=== PATIENT | female | born 1930 ===

== ENCOUNTER 2017-05-04 08:08 | Inpatient (IN) | payer MEDICARE, MEDICAID ==
--- NOTE | 2017-05-04 08:26 | C.PDOC ---
History Of Present Illness 86 y/o female brought to ED by AMS transferred from [facility] for evaluation after being found drooling at 6am today. Dr. Bharat CASTELLANOS sent patient because at baseline she is AAOX3 and verbal but today patient is non verbal and moaning which prompted transfer to ed. At baseline patient has Left side Hemiparesis and patient at ED presents documentation of being DNR/DNH/DNI. HPI limited due to patient's condition. Time Seen by Provider: 05/04/17 08:11 Chief Complaint (Nursing): Weakness/Neurological Deficit History Per: EMS History/Exam Limitations: clinical condition Onset/Duration Of Symptoms: Hrs Current Symptoms Are (Timing): Still Present Past Medical History Reviewed: Historical Data, Nursing Documentation, Vital Signs Vital Signs: Last Vital Signs Temp 99.2 F 05/04/17 09:20 Pulse 78 05/04/17 10:21 Resp 18 05/04/17 10:21 BP 155/42 H 05/04/17 10:21 Pulse Ox 100 05/04/17 10:25 - Medical History PMH: Anxiety, Atrial Fibrillation, Bipolar Disorder, CHF, Dementia, Depression, Diabetes, HTN, Seizures Family History: States: Unknown Family Hx - Social History Hx Tobacco Use: No Hx Alcohol Use: No Hx Substance Use: No - Immunization History Hx Tetanus Toxoid Vaccination: No Hx Influenza Vaccination: Yes Hx Pneumococcal Vaccination: Yes Review Of Systems Review Of Systems: ROS cannot be obtained secondary to pt's inabilty to answer questions. (Patient is non verbal and disoriented) Physical Exam - Physical Exam Appears: Chronically Ill, Other (Cachetic ) Skin: Warm, Dry, No Rash Head: Atraumatic, Normacephalic Eye(s): bilateral: Normal Inspection, PERRL, EOMI Oral Mucosa: Moist Neck: Supple Chest: Symmetrical Cardiovascular: Rhythm Irregular Respiratory: Normal Breath Sounds, No Rales, No Rhonchi, No Wheezing Gastrointestinal/Abdominal: Soft, No Tenderness, No Distention, No Guarding, No Rebound Extremity: No Normal ROM (no movement to L side. moving R side spontaneously), Other (L ankle: necrotic ulcer to lateral side. Stage 1 to medial side) Neurological/Psych: No Normal Speech, No Response To Commands (Patient is alert but non verbal) ED Course And Treatment - Laboratory Results Result Diagrams: 05/04/17 09:09 05/04/17 09:09 O2 Sat by Pulse Oximetry: 100 (RA) Pulse Ox Interpretation: Normal Medical Decision Making Medical Decision Making: Spoke to PMD Dr. Nicholson who reports that patient is normally AAOx3 and conversant at baseline. He is concerned about this AMS but reports that patient is not TPA candidate due to last known well being sometime last night before bed , ?9-10pm. Will evaluate for infection and cva 9:31AM EKG shows atrial fibrillation at 71bpm with LAD. Cxray negative 10:18AM CT head shows "Examination limited by motion. Extensive right MCA territory encephalomalacia." Cxray shows "Biapical pleural thickening with upper lobe granulomatous changes. Diffuse increased interstitial lung markings. Right hilar prominence. Patchy increased markings at the left lung base." 10:20AM Patient has elevated WBC with 87% neutrophils. Lactate WNL. CMP grossly normal. UA shows leukocytes and wbcs. Ucx, Blood cx and wound cultures sent. Will start antibiotics (Zosyn per PMD Dr. Nicholson) and admit for uti/altered mental status. Dr. Nicholson requesting med/sx Disposition - Disposition Disposition: HOSPITALIZED Disposition Time: 10:21 Condition: FAIR - Clinical Impression Clinical Impression: UTI (urinary tract infection), Altered mental status - Scribe Statement The provider has reviewed the documentation as recorded by the Scribadrienne Mario All medical record entries made by the Scribe were at my direction and personally dictated by me. I have reviewed the chart and agree that the record accurately reflects my personal performance of the history, physical exam, medical decision making, and the department course for this patient. I have also personally directed, reviewed, and agree with the discharge instructions and disposition.
[2017-05-04 09:17] LABS: BASO % 0.3 % (0.0-2.0); EOS # 0.1 K/uL (0.0-0.7); EOS % 0.6 % (0.0-4.0); HEMATOCRIT 36.8 % (34.0-47.0); LYMPH # 0.8 K/uL (1.0-4.3); LYMPH % 5.9 % (20.0-40.0); MEAN CELL VOLUME 90.8 fL (81.0-99.0); MEAN CORPUSCULAR HEMOGLOBIN 29.7 pg (27.0-31.0); MEAN CORPUSCULAR HGB CONC 32.7 g/dL (33.0-37.0); MEAN PLATELET VOLUME 8.2 fL (7.2-11.7); MONO # 0.7 K/uL (0.0-0.8); MONO % 5.7 % (0.0-10.0); PLATELET COUNT 192 K/uL (130-400); RED CELL DISTRIBUTION WIDTH 15.7 % (11.5-14.5); WHITE BLOOD COUNT 12.8 K/uL (4.8-10.8)
[2017-05-04 09:24] LABS: VENOUS BLOOD GAS BASE EXCESS 1.9 mmol/L (0.0-2.0); VENOUS BLOOD GAS PCO2 55 mmHg (40-60); VENOUS BLOOD PH 7.33 (7.32-7.43)
[2017-05-04 09:24] LABS: INR 1.3
[2017-05-04 09:28] LABS: ALB/GLOB RATIO 0.8 (1.0-2.1); BILIRUBIN,TOTAL 0.6 mg/dL (0.2-1.3); CALCIUM 8.4 mg/dl (8.6-10.4); MAGNESIUM 1.8 mg/dL (1.6-2.3); PHOSPHOROUS 3.9 mg/dL (2.5-4.5); TOTAL PROTEIN 7.2 g/dL (6.3-8.3)
[2017-05-04 09:41] LABS: TROPONIN I 0.018 ng/mL (0.00-0.120)
[2017-05-04 09:46] LABS: NEUTROPHIL 88 % (50-75); TOTAL CELLS COUNTED 100
[2017-05-04 10:09] LABS: RBC URINE 4 /hpf (0-3); URINE BACTERIA RARE (<OCC); URINE BILIRUBIN NEGATIVE (NEGATIVE); URINE BLOOD NEGATIVE (NEGATIVE); URINE COLOR Amber (YELLOW); URINE GLUCOSE (UA) NORMAL (Normal); URINE KETONE NEGATIVE (NEGATIVE); URINE LEUKOCYTE ESTERASE 3+ Leu/uL (Negative); URINE PROTEIN NEGATIVE (NEGATIVE); URINE UROBILINOGEN NORMAL mg/dL (0.2-1.0); WBC CLUMPS FEW /hpf; WBC URINE 61 /hpf (0-5)
--- NOTE | 2017-05-04 10:17 | CT ---
PROCEDURE: CT HEAD WITHOUT CONTRAST. HISTORY: head injury COMPARISON: Noncontrast head CT performed 10/26/11 TECHNIQUE: Axial computed tomography images were obtained through the head/brain without intravenous contrast. Radiation dose: Total exam DLP = 955.25 mGy-cm. This CT exam was performed using one or more of the following dose reduction techniques: Automated exposure control, adjustment of the mA and/or kV according to patient size, and/or use of iterative reconstruction technique. FINDINGS: Examination limited by motion. HEMORRHAGE: No intracranial hemorrhage. BRAIN: Diffuse atrophy with prominence of the ventricles and sulci noted. No mass effect or edema. Intracranial atherosclerotic calcifications. Extensive right MCA territory encephalomalacia. Please note that MRI with diffusion imaging is more sensitive in the detection of acute ischemic event. VENTRICLES: No hydrocephalus. CALVARIUM: Unremarkable. PARANASAL SINUSES: Unremarkable as visualized. No significant inflammatory changes. MASTOID AIR CELLS: Unremarkable as visualized. No inflammatory changes. OTHER FINDINGS: None. IMPRESSION: Examination limited by motion. Extensive right MCA territory encephalomalacia.
[2017-05-04] MEDS ORDERED: Ciprofloxacin 400mg/200ml D5W 400 MG/200 ML BAG IVPB STA (10:19)
[2017-05-04] MEDS ORDERED: Ciprofloxacin 400mg/200ml D5W 400 MG/200 ML BAG IVPB ONE (10:25)
[2017-05-04] MEDS ORDERED: Piperacill/Tazo 3.375gm in Dex 3.375 GM/50 ML BAG IVPB STA (10:30)
--- NOTE | 2017-05-04 10:36 | RAD ---
HISTORY: Altered mental status COMPARISON: No prior. FINDINGS: LUNGS: Biapical pleural thickening with upper lobe granulomatous changes. Diffuse increased interstitial lung markings. Right hilar prominence. Patchy increased markings at the left lung base. PLEURA: No significant pleural effusion identified, no pneumothorax apparent. CARDIOVASCULAR: Cardiomegaly. Calcification at the aortic knob. OSSEOUS STRUCTURES: Degenerative changes in the spine and shoulders. Small bone island in the left proximal humerus. VISUALIZED UPPER ABDOMEN: Normal. OTHER FINDINGS: None. IMPRESSION: Biapical pleural thickening with upper lobe granulomatous changes. Diffuse increased interstitial lung markings. Right hilar prominence. Patchy increased markings at the left lung base.
[2017-05-04] MEDS ORDERED: Piperacillin/Tazobact 3.375 gm 100 ML IVPB ONE (10:39)
[2017-05-04] MEDS ORDERED: Dextrose 50% SYRINGE Inj (50 ml) IV PRN (18:55)
[2017-05-04] MEDS ORDERED: Piperacill/Tazo 3.375gm in Dex 3.375 GM/50 ML BAG IVPB SCH (19:15)
[2017-05-04] MEDS: Dextrose 5%/0.9% NS 1,000 ML IV SCH (20:36)
[2017-05-04] MEDS: Piperacill/Tazo 3.375gm in Dex 3.375 GM/50 ML BAG IVPB SCH (20:37)
[2017-05-04] MEDS: (Novolin R) Insulin Human Regular 100 units/ml vial SC SCH (21:28)
[2017-05-05] MEDS: Piperacill/Tazo 3.375gm in Dex 3.375 GM/50 ML BAG IVPB SCH ×4 (02:25→21:27)
--- NOTE | 2017-05-05 03:58 | PN ---
DATE: SUBJECTIVE: This is an 86-year-old female with history of multiple medical problems, who is a [facility] resident for many years. The patient had an episode of hypoglycemia. The patient was noticed to have decreased oral intake and due to continuous change of her mental status with inability to go back to the baseline in spite of elevating blood sugar above 100, the patient was transferred to [facility] by ambulance. The patient at the time of the examination was given Ativan in the emergency room due to agitation and she is not responsive to verbal stimuli. REVIEW OF SYSTEMS: Not able to obtain. ALLERGIES: NO KNOWN ALLERGIES. HOME MEDICATIONS: Humalog, enalapril 2.5 mg daily, Tradjenta 5 mg daily, omeprazole 20 mg daily, metoprolol 50 mg daily, metformin 500 mg twice a day, Lamictal 25 mg twice a day, lactulose 10 g at bedtime, Keppra 7.5 mL p.o. daily, glipizide 10 mg daily, Exelon patch 4.6 mg daily, Eliquis 2.5 mg daily, Aricept 10 mg daily, diltiazem 240 mg daily, digoxin 0.125 mg daily, Crestor 10 mg daily, Colace 100 mg twice a day. PAST MEDICAL HISTORY: CVA with right-sided hemiparesis, chronic atrial fibrillation with controlled ventricular rate, seizure disorder, hypertension, type 2 diabetes mellitus, hypercholesterolemia. SOCIAL HISTORY: The patient is a [facility] resident. No history of smoking or EtOH or substance abuse. FAMILY HISTORY: Noncontributory. PHYSICAL EXAMINATION GENERAL: The patient is in bed, comfortable at the time of this examination, sedated by Ativan that she was given and no cardiopulmonary distress. VITAL SIGNS: Blood pressure 155/66, temperature 98.2, respiratory rate 20, pulse 83. HEENT: Pupils equal, reactive to light. Normal appearing mucosa. No conjunctivae. NECK: Supple. No JVD. No carotid bruits. No lymph node. No thyromegaly. CHEST: Lungs bilateral symmetrical expansion. Good air exchange. No rales. No rhonchi. CARDIOPULMONARY: PMI not localized S1 and S2. No additional sounds. ABDOMEN: Normoactive bowel sounds. No tenderness. No organomegaly. No masses. EXTREMITIES: No cyanosis, no clubbing, no edema. CENTRAL NERVOUS SYSTEM: The patient is alert, awake and oriented and the patient is sedated. Currently, was given Ativan and she has right-sided hemiparesis. ASSESSMENT: Acute change of mental status. DIFFERENTIAL DIAGNOSES: Include: 1. Sepsis. 2. Seizure disorder, seizure was postictal state. 3. Type 2 diabetes mellitus. 4. Hypertension. 5. H/O CVA with right-sided hemiparesis. 6. Hypercholesterolemia. PLAN: The patient had form signed by a lady, her name is Reanna, who is the patient's friend and does not have any power of transactional attorney or legal representation. I spoke to the friend, Reanna, who was at the bedside. She speaks only Kitt[place] and we spoke to her through an automation machine builder .Reanna is not aware that she signed any paper that relates to the DNR, DNI .2 ER nurses witnessed this conversation. At this point , we will make the patient full code, waiting to hear from her son that the friend called. We will admit the patient to telemetry and do neuro check Q 4 hours. We will do 1:1 in case of the patient's agitation and we will not give any sedation at this point. Alin Nicholson MD [facility]
[2017-05-05] MEDS: Dextrose 5%/0.9% NS 1,000 ML IV SCH ×3 (07:30→21:28)
[2017-05-05] MEDS: (Novolin R) Insulin Human Regular 100 units/ml vial SC SCH ×4 (07:30→21:33)
[2017-05-06] MEDS: Piperacill/Tazo 3.375gm in Dex 3.375 GM/50 ML BAG IVPB SCH ×4 (03:05→20:37)
[2017-05-06] MEDS: (Novolin R) Insulin Human Regular 100 units/ml vial SC SCH ×4 (08:00→21:29)
[2017-05-06] MEDS: Dextrose 5%/0.9% NS 1,000 ML IV SCH ×3 (09:00→20:40)
[2017-05-06 14:22] LABS: MAGNESIUM 1.5 mg/dL (1.6-2.3); PHOSPHOROUS 3.6 mg/dL (2.5-4.5)
[2017-05-06] MEDS ORDERED: Enoxaparin 40 mg Syringe SC SCH (15:15)
[2017-05-06] MEDS ORDERED: Enalaprilat 2.5 MG/2 ML IV SCH (15:30)
--- NOTE | 2017-05-06 20:35 | PN ---
DATE: 05/06/2017 SUBJECTIVE: There is no change in mental status. PHYSICAL EXAMINATION: VITAL SIGNS: Blood pressure is increased, 191/79, temperature 97.3, respiratory rate 20, and pulse 109. HEENT: Normal appearing mucosa of the conjunctivae. NECK: No JVD. No carotid bruit. No lymph node. No thyromegaly. CHEST AND LUNGS: Bilateral symmetrical expansion. Good air exchange. No rales, no rhonchi. CARDIOVASCULAR: PMI not localized. S1 and S2. Irregularly irregular. ABDOMEN: Normoactive bowel sounds. Nontender. No organomegaly. No masses. EXTREMITIES: No cyanosis, no clubbing, no edema. CENTRAL NERVOUS SYSTEM: The patient is awake, but she is disoriented, and she is not responding to any questions appropriately and moves in the bed without purpose. ASSESSMENT: Acute change in mental status. DIFFERENTIAL DIAGNOSES: Include; 1. A seizure with postictal state. 2. Hypertension. 3. Type 2 diabetes mellitus. 4. Atrial fibrillation with controlled ventricular rate. PLAN: We will resume the patient's IV. Repeat CAT scan. Neurology and psychiatric consult. Alin Nicholson MD
--- NOTE | 2017-05-06 20:43 | PN ---
DATE: 05/05/2017 SUBJECTIVE: She is still continuing to . The patient was not responding to any question appropriately. PHYSICAL EXAMINATION: VITAL SIGNS: Blood pressure was 108/49, temperature 98.5, respiratory rate 20 and pulse 90. HEENT: Pupils equal, reactive to light. Normal appearing mucosa of the conjunctivae, oropharyngeal and nasal green mucosa. NECK: Supple. No JVD. No carotid bruit. No lymph node. No thyromegaly. CHEST AND LUNGS: Bilateral symmetrical expansion. Good air exchange. No rales, no rhonchi. CARDIOVASCULAR: PMI not localized. S1 and S2, regularly irregular. No additional sounds. ABDOMEN: Normoactive bowel sounds. No tenderness. No organomegaly. No masses. EXTREMITIES: No cyanosis, no clubbing, no edema. BUFFING MACHINE TENDER: The patient is awake but she is disoriented, confused and she has old right-sided hemiplegia. ASSESSMENT: Acute change of mental status. DIFFERENTIAL DIAGNOSES: Includes: 1. Sepsis. 2. Cerebrovascular accident. 3. Seizure with postictal state. 4. Hypertension. 5. Type 2 diabetes mellitus. 6. Cerebrovascular accident with right-sided hemiparesis. PLAN: Continue current medications and well repeat a CAT scan of the head and continue IV antibiotics. Alin Nicholson MD
[2017-05-06] MEDS: Metoprolol 1 mg/ml Inj IVP SCH (22:16)
--- NOTE | 2017-05-06 22:24 | CT ---
EXAM: CT Head Without Intravenous Contrast CLINICAL HISTORY: 86 years old, female; Signs and symptoms; Altered mental status/memory loss; Confusion or disorientation; Additional info: CVA TECHNIQUE: Axial computed tomography images of the head/brain without intravenous contrast. All CT scans at this facility use one or more dose reduction techniques, viz.: automated exposure control; ma/kV adjustment per patient size (including targeted exams where dose is matched to indication; i.e. head); or iterative reconstruction technique. Coronal and sagittal reformatted images were created and reviewed. EXAM DATE/TIME: 05/06/2017 3:07 PM COMPARISON: CT - HEAD W/O CONTRAST 05/04/2017 9:19:37 AM FINDINGS: Patient motion is present limiting exam. No intracranial hemorrhage. There is a small area of low attenuation in the left superior caudate consistent with old lacunar infarct. Again seen is extensive encephalomalacia from prior right MCA infarct with ex vacuo dilatation of the right lateral ventricle. There is a wedge-shaped area of low attenuation in the left parietal temporal lobes consistent with acute/subacute infarct. There is slight mass effect upon the occipital horn of the left lateral ventricle. No midline shift. The sinuses and mastoid air cells are clear. IMPRESSION: Acute/subacute infarct left parietal temporal region. Chronic right MCA infarct. Chronic left caudate lacunar infarct.
[2017-05-07] MEDS: Piperacill/Tazo 3.375gm in Dex 3.375 GM/50 ML BAG IVPB SCH ×4 (03:16→21:40)
--- NOTE | 2017-05-07 04:16 | PCM.RRTMUL ---
<Mayco Andrews - Last Filed: 05/07/17 04:14> LANGUAGE TRANSLATOR Nurses Assessment - Situation LANGUAGE TRANSLATOR Reason for Call: Possible Stroke LANGUAGE TRANSLATOR Called By: RN New IV Insertion Tolerance:: Good - Vital Signs Blood Pressure:: 163/88 Pulse Rate:: 109 Respiratory Rate:: 20 Temperature:: 98.2 F - Recommendations 5) LANGUAGE TRANSLATOR Level of Care Recommendations: Transfer to Telemetry 6) Notifications: Attending Physician (Neurologist was notified) I.Reason for LANGUAGE TRANSLATOR - A) Acute Change in Patient: Subjective: Code stroke was called after repeat CT image showed possible acute/subacute infarct of the left parietal/temporal region of the brain. - B) Neurological Status (Select all that apply): Disoriented (pt has baseline dementia, previous strokes and was recently given ativan for CT scan) - Constitutional Appears: Confused, Chronically Ill - Eyes Additional Comments: Dilated pupils, only would open left eye. - Respiratory Exam Respiratory Exam: Clear to Ausculation Bilateral, NORMAL BREATHING PATTERN. absent: Accessory Muscle Use, Respiratory Distress - Cardiovascular Exam Cardiovascular Exam: +S1, +S2 - GI/Abdominal Exam GI & Abdominal Exam: Soft. absent: Distended, Guarding, Rigid - Neurological Exam Neurological Exam: Altered Additional exam: Patient has baseline dementia, hx of previous strokes with deficits and was recently given ativan for CT scan - Extremities Exam Additional comments: Patient spontaneously moved right arm up to cover her face during the examination. would pull away from painful stimuli on right side UE and LE, decreased movement away from painful stimuli on left side UE but did not respond at all to painful stim. on left LE. Plan - B. Assessment of Findings&Treatment Plan Code stroke was called after repeat CT image showed possible acute/subacute infarct of the left parietal/temporal region of the brain. The CT was ordered as a repeat as to follow up her altered mental status on admission. Patient is unable to answer questions due to altered mental status at the time of the examination. She was recently given Ativan prior to getting the CT. Patient also has a history of baseline dementia, chronic afib and repeat strokes while on anticoagulation. Patient is not a candidate for tPA. Dr. Jaimes was called and notified of event. <Gavin Marin - Last Filed: 05/07/17 07:23> Attending/Attestation - Attestation I have personally seen and examined this patient.: Yes I have fully participated in the care of the patient.: Yes I have reviewed all pertinent clinical information, including history, physical exam and plan: Yes Notes (Text): Code stroke was called after repeat CT image showed possible acute/subacute infarct of the left parietal/temporal region of the brain. The CT was ordered as a repeat as to follow up her altered mental status on admission. Patient is unable to answer questions due to altered mental status at the time of the examination. She was recently given Ativan prior to getting the CT. Patient also has a history of baseline dementia, chronic afib and repeat strokes while on anticoagulation. Patient is not a candidate for tPA. Dr. Jaimes was called and notified of event.
--- NOTE | 2017-05-07 05:57 | CON ---
DATE: 05/06/2017 CHIEF COMPLAINT AND REASON FOR CONSULTATION: The patient was referred by Dr. Nicholson for evaluation of this patient for change in mental status. The patient has history as mentioned and is on multiple psych meds. HISTORY OF PRESENT ILLNESS: The patient is an 86-year-old female of descent with multiple medical problems. The patient has been a resident of [facility] for many years. The patient was admitted here for change in mental status. The patient had episodes of hypoglycemia, but the patient was noted to be not getting well and her mental status seems to be deteriorating. The patient was also diagnosed to have urinary tract infection on admission and was admitted. The patient was referred for goal management as the patient seems to be having change in mental status. The patient when seen today is alert, but seems to be confused and was trying to raise her right hand. The patient was seen in a four-bedded room. She also has bouts of agitation. In the emergency room, she was given Ativan for agitation; the patient at one point was given 2 mg, but got sedated. Today, she is alert, but still with periods of confusion. The patient also was nonverbal. She is restless and trying to get out of bed and needs to be monitored. PAST PSYCHIATRIC HISTORY: History of dementia, most probably vascular type. The patient had a CAT scan of the head done in the emergency room that showed the following findings: The patient had no intracranial hemorrhage; however, it showed extensive right MCA territory encephalomalacia and previous stroke. As stated, the patient has a history of dementia, most probably vascular type. MEDICAL HISTORY: History of seizures, history of atrial fibrillation, CHF, diabetes, and hypertension. ALLERGIES: THE PATIENT HAS NO KNOWN ALLERGIES. DRUG/ALCOHOL HISTORY: Denies any. PSYCHOSOCIAL HISTORY: The patient is a long term patient for many years at [facility]. Psychosocial history cannot be taken much as the patient is confused and a very poor historian. MEDICATIONS: The patient is on Voltaren, Vesicare, Vasotec, Tradjenta, metoprolol, Lamictal 25 mg b.i.d., Keppra 7.5 mL daily, glipizide, and Eliquis. Note that these are the medications that the patient was taking at the long term. The patient also was taking Aricept 10 mg daily at bedtime and also Exelon patch 4.6 mg patch daily. Her current medications in the hospital just include heparin, Keppra 750 mg q.12 hours as well as Lopressor, Lovenox, Novolin, Vasotec, and Zosyn. REVIEW OF SYSTEMS: Cannot be fully assessed due to mental status. PHYSICAL EXAMINATION VITAL SIGNS: Temperature is 97.3, pulse 144, blood pressure is 162/98, respirations 22, and oxygen saturation 95%. GENERAL: The patient is alert but nonverbal, sitting in her room, still confused. The patient's mental status seems to be waxing and waning. She seems to not be in acute respiratory distress, moving her right hand. The patient has left-sided weakness from her previous stroke. The patient is mostly nonverbal. MENTAL STATUS EXAMINATION: Elderly female, chronically ill, confused but alert. The patient is mostly nonverbal. Affect is restricted with dysphoria. Thought process cannot be assessed. Thought content, no overt psychosis or suicidal ideation. The patient is very fidgety and trying to get out of bed. Attention and memory seem to be impaired. Insight and judgement impaired. Impulse control is guarded at this time. LABORATORY DATA: The patient's WBC is 12.8. UA has the presence of +3-4 leukocyte esterase, urine wbc's 61, urine rbc's 4, presence of urine wbc clumps few. The patient's color of the urine is darleen. IMPRESSION: Metabolic encephalopathy secondary to sepsis from urinary tract infection, superimposed on dementia, most probably vascular type. PLAN AND RECOMMENDATIONS: The patient was seen, meds reviewed. Continue antibiotics as ordered. The patient is being treated with Zosyn for infection. Psych-reed, I will keep her in the safety observation room for monitoring. I do suggest holding off the Aricept and the Exelon patch for now; however, for agitation, we will try to give her Ativan 1 mg IV q.6 p.r.n. for agitation. The patient is also referred to be seen by Dr. Jaimes for neuro eval. I did review some of her records from the long term. The patient was taking some other psych medications in the past including Risperdal, but the patient does not need it for now. For now, we will just keep her on Ativan p.r.n. to control agitation. Ted Lee MD [facility] # [id number] MICAH
[2017-05-07] MEDS: (Novolin R) Insulin Human Regular 100 units/ml vial SC SCH ×4 (08:40→21:55)
[2017-05-07] MEDS: Dextrose 5%/0.9% NS 1,000 ML IV SCH (09:30)
[2017-05-07] MEDS: Metoprolol 1 mg/ml Inj IVP SCH ×2 (10:00→21:31)
--- NOTE | 2017-05-07 10:33 | PCM.RRTMUL ---
APPEALS NURSE Nurses Assessment - Situation APPEALS NURSE Responder Arrival Time:: 10:22 (APPEALS NURSE called at 10:25, patient was actively seizing. Hx of CVA. Code stroke called this morning for AMS. Head CT showed subacute infarct parietal/temporal lobe. TPA not administered. Patient hx of seizures due to recurrent CVAs. Spoke with Neurologist, who increased the keppra. He will see the patient today. ) Location:: Room Number:: 656B APPEALS NURSE Reason for Call: Possible Stroke, Looks Sicker APPEALS NURSE Called By: RN - IV IV Inserted during APPEALS NURSE?: No New IV Insertion Tolerance:: Good - Respiratory Oxygen Delivery Method:: Nasal Cannula Received Nebulizer Treatments:: No Was the Patient Ventilated with Bag/Mask 100% O2?: No Secretions Suctioned?: No Was the Patient Intubated?: No Was the Patient Placed on a Ventilator?: No - Medication Medications Administered During APPEALS NURSE :: Ativan 1mg IVP x2. TOTAL 2 mg IVP given due to active seizure activity. - Diagnostic Test Ordered Chest X-Ray:: Yes (Patient sounded fluid overloaded. Was on fluids, I ordered them to stop.) - Stat Labs Ordered APPEALS NURSE Stat Labs Ordered:: CBC APPEALS NURSE Other Labs Ordered:: CMP, MAG, PHOS CPR started during APPEALS NURSE?: No - Vital Signs Blood Pressure:: 160/75 Pulse Rate:: 97 Respiratory Rate:: 20 Temperature:: 99.3 F - Time APPEALS NURSE Ended Time APPEALS NURSE Ended:: 10:35 - Vital Signs at end of APPEALS NURSE Blood Pressure:: 174/75 - Recommendations 5) APPEALS NURSE Level of Care Recommendations: Remain in current setting 6) Notifications: Attending Physician (Neurologist was notified, resident spoke with Dr. Jaimes orderd Keppra be increased to 1000mg IVP Q12. Call was placed to Primary doctor, no call back. ), Consultations I.Reason for APPEALS NURSE - A) Acute Change in Patient: (Select all that apply): Acute change in mental status (seizure ) - B) Neurological Status (Select all that apply): Lethargic - C) Respiratory Oxygen Delivery Method: Nasal Cannula @L/min - Constitutional Appears: Confused, Chronically Ill - Head Head Exam: NORMAL INSPECTION, NORMOCEPHALIC - Eyes Eye Exam: EOMI, Normal appearance, PERRL - Respiratory Exam Respiratory Exam: Rales, NORMAL BREATHING PATTERN - Cardiovascular Exam Cardiovascular Exam: REGULAR RHYTHM - GI/Abdominal Exam GI & Abdominal Exam: Soft, Normal Bowel Sounds. absent: Distended, Tenderness - Neurological Exam Neurological Exam: Awake - Extremities Exam Extremities Exam: Normal Inspection. absent: Pedal Edema, Tenderness
[2017-05-07 11:18] LABS: BASO % 0.4 % (0.0-2.0); EOS % 0.1 % (0.0-4.0); HEMATOCRIT 38.8 % (34.0-47.0); LYMPH # 0.9 K/uL (1.0-4.3); LYMPH % 8.9 % (20.0-40.0); MEAN CELL VOLUME 90.5 fL (81.0-99.0); MEAN CORPUSCULAR HEMOGLOBIN 29.5 pg (27.0-31.0); MEAN CORPUSCULAR HGB CONC 32.6 g/dL (33.0-37.0); MEAN PLATELET VOLUME 8.1 fL (7.2-11.7); MONO # 0.7 K/uL (0.0-0.8); MONO % 6.9 % (0.0-10.0); PLATELET COUNT 253 K/uL (130-400); RED CELL DISTRIBUTION WIDTH 15.9 % (11.5-14.5); WHITE BLOOD COUNT 10.2 K/uL (4.8-10.8)
[2017-05-07 11:34] LABS: CHLORIDE 112 mmol/L (98-107)
[2017-05-07 11:35] LABS: POTASSIUM 2.9 mmol/L (3.6-5.2); SODIUM 151 mmol/L (132-148)
[2017-05-07 11:36] LABS: GFR AFRICAN-AMERICAN > 60
[2017-05-07 11:37] LABS: ALB/GLOB RATIO 0.8 (1.0-2.1); ALKALINE PHOSPHATASE 84 U/L (38-126); AST/SGOT 35 U/L (14-36); BILIRUBIN,TOTAL 0.7 mg/dL (0.2-1.3); BLOOD UREA NITROGEN 15 mg/dL (7-17); CALCIUM 8.5 mg/dl (8.6-10.4); CARBON DIOXIDE 26 mmol/L (22-30); GLUCOSE,RANDOM 142 mg/dL (65-105); PHOSPHOROUS 3.3 mg/dL (2.5-4.5); TOTAL PROTEIN 7.2 g/dL (6.3-8.3)
[2017-05-07 11:38] LABS: ALT/SGPT 31 U/L (9-52); MAGNESIUM 1.5 mg/dL (1.6-2.3)
[2017-05-07 12:02] LABS: BASOPHIL 1 % (0-2); NEUTROPHIL 82 % (50-75); TOTAL CELLS COUNTED 100
--- NOTE | 2017-05-07 12:47 | RAD ---
PROCEDURE: CHEST RADIOGRAPH, 1 VIEW HISTORY: AMS COMPARISON: May 04, 2017 FINDINGS: LUNGS: Clear. PLEURA: No pneumothorax or pleural fluid seen. CARDIOVASCULAR: Cristian for cardiac OSSEOUS STRUCTURES: No significant abnormalities. VISUALIZED UPPER ABDOMEN: Normal. OTHER FINDINGS: None. IMPRESSION: No active disease. No acute/significant interval changes.
--- NOTE | 2017-05-07 13:08 | CP.PCM.CON ---
History of Present Illness - History of Present Illness History of Present Illness: CONSULT DICTATED EVENTS NOTED STATUS EPILEPTICUS NEW LEFT MCA STROKE AFIB WITH RAPID RATE HYPOKALEMIA ATIVAN/ IAIN ARMSTRONG EKG CARDIOLOGY CONSULT FAMILY CONTACTED - NO ANSWER NEEDS INTUBATION Past Patient History - Infectious Disease Hx of Infectious Diseases: None - Past Medical History & Family History Past Medical History?: Yes - Past Social History Smoking Status: Never Smoked - CARDIAC Hx Cardiac Disorders: Yes Hx Angina: No Hx Atrial Fibrillation: Yes Hx Cardia Arrhythmia: Yes Hx Circulatory Problems: No Hx Congestive Heart Failure: Yes Hx Heart Attack: No Hx Heart Murmur: No Hx Heart Transplant: No Hx Hypercholesterolemia: Yes Hx Hypertension: Yes Hx Hypotension: No Hx Internal Defibrillator: No Hx Mitral Valve Prolapse: No Hx Pacemaker: No Hx Peripheral Edema: No Hx Peripheral Vascular Disease: No - PULMONARY Hx Respiratory Disorders: Yes Hx Asthma: No Hx Bronchitis: No Hx Chronic Obstructive Pulmonary Disease (COPD): No Hx Emphysema: No Hx Lung Cancer: No Hx Pneumonia: No Hx Pulmonary Edema: No Hx Pulmonary Embolism: No Hx Respiratory Aspiration: No Hx Respiratory Tract Infection: No Hx Sleep Apnea: No Hx Tuberculosis: No Other/Comment: chronic resp failure - NEUROLOGICAL Hx Neurological Disorder: Yes Hx Alzheimer's Disease: No HX Cerebrovascular Accident: Yes Hx Dementia: Yes Hx Dizziness: No Hx Meningitis: No Hx Migraine: No Hx Multiple Sclerosis: No Hx Paralysis: No Hx Parkinson's Disease: No Hx Seizures: Yes Hx Syncope: No Hx Transient Ischemic Attacks (TIA): No Hx Vertigo: No Other/Comment: DEMENTIA - HEENT Hx HEENT Problems: No - RENAL Hx Chronic Kidney Disease: No - ENDOCRINE/METABOLIC Hx Endocrine Disorders: Yes Hx Adrenal Cancer: No Hx Diabetes Insipidus: No Hx Diabetes Mellitus Type 1: No Hx Diabetes Mellitus Type 2: Yes Hx Hyperthyroidism: No Hx Hypothyroidism: No Hx Systemic Lupus Erythematosus: No - HEMATOLOGICAL/ONCOLOGICAL Hx Blood Disorders: No - INTEGUMENTARY Hx Dermatological Problems: No - MUSCULOSKELETAL/RHEUMATOLOGICAL Hx Falls: No - GASTROINTESTINAL Hx Gastrointestinal Disorders: Yes Hx Bowel Surgery: No Hx Clostridium Difficile: No Hx Colitis: No Hx Colostomy: No Hx Constipation: No Hx Crohn's Disease: No Hx Diarrhea: No Hx Diverticulitis: No Hx Esophageal Varices: No Hx Fatty Liver Disease: No Hx Gall Bladder Disease: No Hx Gastritis: No Hx Gastroesophageal Reflux: No Hx Hemorrhoids: Yes Hx Ileostomy: No Hx Irritable Bowel: No Hx Liver Failure: No Hx Nausea: No Hx Pancreatitis: No HX Swallowing Problems: Yes Hx Ulcer: No Hx Vomiting: No - GENITOURINARY/GYNECOLOGICAL Hx Genitourinary Disorders: Yes Hx Bladder Cancer: No Hx Bladder Stone: No Hx Cervical Cancer: No Hx Hematuria: No Hx Incontinence: Yes Hx Ovarian Cancer: No Hx Postmenopausal Bleeding: No Hx Reproductive Disorders: No Hx Sexually Transmitted Disorders: No Hx Uterine Cancer: No Hx Urinary Tract Infection: Yes - PSYCHIATRIC Hx Substance Use: No - SURGICAL HISTORY Hx Surgeries: Yes Hx Abdominal Aortic Aneurysm Repair: No Hx Amputation: No Hx Angiogram: No Hx Angioplasty: No Hx Appendectomy: No Hx Arteriovenous Shunt: No Hx Arthroscopy: No Hx Bile Duct Stent: No Hx Breast Biopsy: No Hx Cataract Extraction: No Hx Cardiac Catheterization: No Hx Carotid Endarterectomy: No Hx Section: No Hx Cholecystectomy: No Hx Coronary Artery Bypass Graft: No Hx Coronary Stent: Yes Hx Dilation and Curettage: No Hx Eye Surgery: No Hx Femoral-Popliteal Bypass Graft: No Hx Gastric Bypass Surgery: No Hx Herniorrhaphy: No Hx Hysterectomy: No Hx Joint Replacement: No Hx Kidney Transplant: No Hx Liver Transplant: No Hx Mastectomy: No Hx Musculoskeletal Surgery: No Hx Open Heart Surgery: No Hx Open Reduction Internal Fixation: No Hx Orthopedic Surgery: No Hx Parathyroidectomy: No Hx Penile Implant: No Hx Pulmonary Surgery: No Hx Splenectomy: No Hx Thyroidectomy: No Hx Tonsillectomy: No Hx Tubal Ligation: No Hx Valve Replacement: No Hx Vascular Surgery: No Hx Vascular Access Device: No - ANESTHESIA Hx Anesthesia: Yes Hx Anesthesia Reactions: No Hx Malignant Hyperthermia: No Has any member of the family had a problem w/ anesthesia?: No Meds Allergies/Adverse Reactions: Allergies Allergy/AdvReac Type Severity Reaction Status Date / Time No Known Allergies Allergy Unverified 11/06/13 17:27 - Medications Medications: Current Medications Dextrose (Dextrose 50% Inj) 50 ml IV PRN PRN PRN Reason: Hypoglycemia Enoxaparin Sodium (Lovenox) 40 mg SC DAILY [facility] Heparin Sodium (Porcine) (Heparin) 5,000 units SC Q12 [facility] Last Admin: 05/07/17 09:58 Dose: 5,000 units Dextrose/Sodium Chloride (Dextrose 5%/0.9% Ns 1000 Ml) 1,000 mls @ 80 mls/hr IV .[id number] [facility] Last Admin: 05/06/17 20:40 Dose: 80 mls/hr Piperacillin Sod/Tazobactam Sod (Zosyn 3.375 Gm Iv Premix) 3.375 gm in 50 mls @ 100 mls/hr IVPB Q6H [facility] Last Admin: 05/07/17 09:30 Dose: 100 mls/hr Levetiracetam 1,000 mg/ Sodium (Chloride) 110 mls @ 420 mls/hr IVPB Q12H [facility] Enalaprilat 2.5 mg/ Sodium (Chloride) 52 mls @ 100 mls/hr IV DAILY@1200 [facility] Potassium Chloride/Dextrose/Sod Cl (Potassium Chl 20 Meq In D5-1/2ns) 1,000 mls @ 60 mls/hr IV .[id number] [facility] Insulin Human Regular (Novolin R) 0 unit SC ACHS [facility] PRN Reason: Protocol Last Admin: 05/07/17 11:59 Dose: Not Given Lorazepam (Ativan) 2 mg IVP Q4H PRN PRN Reason: Seizure activity Lorazepam (Ativan) 1 mg IVP Q2H PRN PRN Reason: Seizure activity Metoprolol Tartrate (Lopressor) 5 mg IVP Q12 [facility] Last Admin: 05/07/17 10:00 Dose: 5 mg Results - Vital Signs Recent Vital Signs: Last Vital Signs Temp 99.3 F 05/07/17 12:00 Pulse 134 H 05/07/17 12:35 Resp 20 05/07/17 12:00 BP 190/72 H 05/07/17 12:35 Pulse Ox 98 05/07/17 10:22 - Labs Result Diagrams: 05/07/17 11:06 05/07/17 11:06 Labs: Laboratory Results - last 24 hr 05/06/17 05/06/17 05/06/17 14:04 14:04 17:24 WBC RBC Hgb Hct MCV MCH MCHC RDW Plt Count MPV Neut % (Auto) Lymph % (Auto) [place] % (Auto) Eos % (Auto) Baso % (Auto) Neut # Lymph # [place] # Eos # Baso # Neutrophils % (Manual) Lymphocytes % (Manual) Monocytes % (Manual) Basophils % (Manual) Platelet Estimate Anisocytosis (manual) Sodium Potassium Chloride Carbon Dioxide Anion Gap BUN Creatinine Est GFR ( Amer) Est GFR (Non-Af Amer) POC Glucose (mg/dL) 137 H Random Glucose Calcium Phosphorus 3.6 Magnesium 1.5 L Total Bilirubin AST ALT Alkaline Phosphatase Ammonia 10 Total Protein Albumin Globulin Albumin/Globulin Ratio Prolactin 11.2 05/06/17 05/07/17 05/07/17 21:05 06:20 10:17 WBC RBC Hgb Hct MCV MCH MCHC RDW Plt Count MPV Neut % (Auto) Lymph % (Auto) [place] % (Auto) Eos % (Auto) Baso % (Auto) Neut # Lymph # [place] # Eos # Baso # Neutrophils % (Manual) Lymphocytes % (Manual) Monocytes % (Manual) Basophils % (Manual) Platelet Estimate Anisocytosis (manual) Sodium Potassium Chloride Carbon Dioxide Anion Gap BUN Creatinine Est GFR ( Amer) Est GFR (Non-Af Amer) POC Glucose (mg/dL) 142 H 148 H 147 H Random Glucose Calcium Phosphorus Magnesium Total Bilirubin AST ALT Alkaline Phosphatase Ammonia Total Protein Albumin Globulin Albumin/Globulin Ratio Prolactin 05/07/17 05/07/17 05/07/17 11:06 11:06 11:40 WBC 10.2 RBC 4.28 Hgb 12.6 Hct 38.8 MCV 90.5 MCH 29.5 MCHC 32.6 L RDW 15.9 H Plt Count 253 MPV 8.1 Neut % (Auto) 83.7 H Lymph % (Auto) 8.9 L [place] % (Auto) 6.9 Eos % (Auto) 0.1 Baso % (Auto) 0.4 Neut # 8.6 H Lymph # 0.9 L [place] # 0.7 Eos # 0.0 Baso # 0.0 Neutrophils % (Manual) 82 H Lymphocytes % (Manual) 11 L Monocytes % (Manual) 6 Basophils % (Manual) 1 Platelet Estimate Normal Anisocytosis (manual) Slight Sodium 151 H Potassium 2.9 L Chloride 112 H Carbon Dioxide 26 Anion Gap 16 BUN 15 Creatinine 1.0 Est GFR ( Amer) > 60 Est GFR (Non-Af Amer) 52 POC Glucose (mg/dL) 147 H Random Glucose 142 H Calcium 8.5 L Phosphorus 3.3 Magnesium 1.5 L Total Bilirubin 0.7 AST 35 ALT 31 Alkaline Phosphatase 84 Ammonia Total Protein 7.2 Albumin 3.3 L Globulin 4.0 H Albumin/Globulin Ratio 0.8 L Prolactin
[2017-05-07 13:48] LABS: CHOLESTEROL 128 mg/dL (0-199)
[2017-05-07] MEDS: Potassium Ch 20mEq in D5-1/2NS 1,000 ML IV SCH (14:17)
[2017-05-07] MEDS: levETIRAcetam 1,000 MG in Sodium Chloride 0.9% 100 ML IVPB SCH (16:29)
--- NOTE | 2017-05-07 21:25 | PN ---
DATE: 05/07/2017 SUBJECTIVE: The patient was seen earlier by Dr. Jaimes. The patient had new onset CVA. The patient has new left MCA stroke. The patient had a history of right MCA stroke in the past. The patient was seen today, the patient is alert, but mostly nonverbal. She is not agitated, but the patient is on Ativan p.r.n. The patient is currently on telemetry. MEDICATIONS: List of current medications, the patient is on Ativan 2 mg IV q.4 hours p.r.n. The patient also is on Keppra 1000 mg q.12 hours. REVIEW OF SYSTEMS: The patient is nonverbal, although still according to the nurse, the patient has bouts of agitation. Today when seen, she was staring, not agitated, and not in acute respiratory distress. According to the chart, the patient had seizure earlier, not complaining of pain. The patient still has left-sided hemiparesis. PHYSICAL EXAMINATION: VITAL SIGNS: Temperature is 99.3, pulse rate is 134, blood pressure is 178/68, respirations are 20, and oxygen saturation is 98%. MENTAL STATUS EXAMINATION: Elderly female, seen her in room, the patient is on one-to-one watch, alert, but confused, mostly nonverbal. Mood is dysphoric. Affect is restricted. Thought process confused. Thought content, no overt paranoia,hallucination or suicidal ideation. Attention and memory is impaired. Insight and judgement impaired. Impulse control is guarded at this time. DIAGNOSTIC DATA: Review of the repeat CAT scan done yesterday showed acute/subacute infarct in the left parietotemporal region, history of chronic right MCA infarct, and chronic left caudate lacunar infarct. 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 PLAN AND RECOMMENDATIONS: The patient is seen and medications reviewed. The patient is followed by Dr. Jaimes. We will keep the patient off her dementia medication for now, the patient is on Ativan and Keppra. Continue treatment plan as outlined. Ted Lee MD [facility] # [id number] MTDD
--- NOTE | 2017-05-07 23:28 | PN ---
DATE: 05/07/2017 SUBJECTIVE: She had frequence seizures today and rapid response was called. The patient also was seen by neurology and repeated CAT scan of the head showed acute versus subacute left parietal temporal infraction. PHYSICAL EXAMINATION VITAL SIGNS: Blood pressure 166/65, temperature 98.1, respiratory 20, and pulse 102. HEENT: Patient is not cooperative to physical exam and she was lethargic at the time of this examination as she was given Ativan. NECK: Supple. No JVD. No carotid bruit. No lymph node. No thyromegaly. CHEST AND LUNGS: Bilateral, symmetrical expansion. Good air exchange. No rales, no rhonchi. CARDIOPULMONARY: PMI not localized. S1 and S2. No additional sounds. ABDOMEN: Normoactive bowel sounds. No tenderness. No organomegaly. No masses. EXTREMITIES: No cyanosis, no clubbing, no edema. COMMERCIAL MARKETING SPECIALIST: Patient is lethargic and sedated by the Ativan that she was given and could not to do complete neuro exam. ASSESSMENT: 1. Cerebrovascular accident, left parietal temporal. 2. Status epilepticus. 3. Type 2 diabetes mellitus. 4. Paroxysmal atrial fibrillation. 5. Hypertension. PLAN: Follow neurology recommendations and continue current medicine. We will put nasogastric tube for feeding and start patient's p.o. antibiotics through the nasogastric tube. Guarded prognosis and patient is DNR as per her request. The patient had signed a DNR form in 2010 in which her friend signed the form of DNR and DNI in 2015. This is a clarification for the note written regarding her DNR and DNI and history and physical. Alin Nicholson MD
--- NOTE | 2017-05-08 03:17 | CON ---
DATE: 05/07/2017 HISTORY OF PRESENT ILLNESS: The patient is an 86 years old female, a prison resident who was brought from a prison because she was noted to be drooling. The patient's initial CT scan of the head revealed a right mid cerebral artery territory encephalomalacia and a subsequent CAT scan revealed acute infarct in the left parietal-temporal region beside the chronic right MCA infarct with the chronic left caudate lacunar infarct . The patient is noted to be also actively seizing on the floor. Dr. Jaimes the neurologist spoke to me and requested cardiology consult, however, he did not recommend full anticoagulation at this time. SOCIAL HISTORY: The patient is a prison resident. MEDICATIONS: Ativan 1 mg intravenously q. 12 hours p.r.n. for seizure activity, normal saline 8 mL an hour, enalapril 2.5 mg intravenously daily, heparin 5000 units subcutaneously twice a day, Lopressor 5 mg intravenously q. 12 hours, Zosyn 3.375 g intravenously q. 6 hours. REVIEW OF SYSTEMS: No reported ventricular tachycardia. No reported hypertension. PHYSICAL EXAMINATION GENERAL: The patient is an elderly female who is poorly responsive and does not appear to be in acute respiratory distress. VITAL SIGNS: Blood pressure 78/68, heart rate 134, temperature 99.3, respirations 20. HEENT: No pallor or icterus. NECK: No JVD. CHEST: Poor inspiratory effort. HEART: S1, S2 regular. ABDOMEN: Soft. EXTREMITIES: No edema. LABORATORY DATA: Hemoglobin and hematocrit 12.6 and 38.8, white count and platelet count to be at 10.2 and 253,000. INR is 1.3. PTT 33. SMA-7; sodium 151, potassium 2.9, chloride 112, CO2 26, glucose 142, BUN 15, creatinine 1.0. EKG revealed atrial fibrillation at the rate of 71, consider old anterior wall infarct. Today's EKG after seizure revealed atrial fibrillation with rapid ventricular response and ischemic anterior wall ST segment changes. ASSESSMENT: 1. Acute/subacute infarct in the left parietal, temporal region. Chronic right mid cerebral artery infarct and chronic left caudate lacunar infarct. 2. Atrial fibrillation. 3. Anemia. 4. Hyponatremia. 5. Uncontrolled diabetes mellitus. PLAN: Case discussed with Dr. Jaimes the neurologist and the patient will be remained on IV fluids as well as IV Zosyn and subcutaneous heparin. The patient is not a suitable candidate for full regimen of anticoagulation therapy and she will be kept n.p.o. with enalapril and Lopressor IV p.r.n. I did request potassium chloride 20 mEq intravenously as a single dose. The patient is the DO NOT RESUSCITATE status and consequently a medical approach is justified. Quirino Reyes MD
[2017-05-08] MEDS: Piperacill/Tazo 3.375gm in Dex 3.375 GM/50 ML BAG IVPB SCH ×4 (03:24→21:35)
--- NOTE | 2017-05-08 04:20 | CP.PCM.PN ---
Subjective - Date & Time of Evaluation Date of Evaluation: 05/08/17 Time of Evaluation: 04:16 - Subjective Subjective: Paged on patient overnight for episode of v-tach. Patient does not respond to questioning but does not appear to be in any distress. Patient had SHANK TAPER earlier in the day 05/07 for seizure activity. Patient noted to be hypokalemic on AM labs and she did receive 20meQ of potassium IV. Stat labs and EKG ordered. NGT placed and CXR ordered to confirm placement. NGT placed per Dr. Jaimes's orders. Will continue to monitor. Objective - Vital Signs/Intake and Output Vital Signs (last 24 hours): Temp Pulse Resp BP Pulse Ox 99.1 F 115 H 20 160/67 H 99 05/07/17 23:10 05/08/17 00:58 05/07/17 23:10 05/07/17 23:10 05/07/17 23:10 Intake and Output: 05/07/17 05/08/17 18:59 06:59 Intake Total 640 480 Output Total 150 210 Balance 490 270 - Medications Medications: Current Medications Dextrose (Dextrose 50% Inj) 50 ml IV PRN PRN PRN Reason: Hypoglycemia Heparin Sodium (Porcine) (Heparin) 5,000 units SC Q12 [facility] Last Admin: 05/07/17 21:33 Dose: 5,000 units Piperacillin Sod/Tazobactam Sod (Zosyn 3.375 Gm Iv Premix) 3.375 gm in 50 mls @ 100 mls/hr IVPB Q6H [facility] Last Admin: 05/08/17 03:24 Dose: 100 mls/hr Levetiracetam 1,000 mg/ Sodium (Chloride) 110 mls @ 420 mls/hr IVPB Q12H [facility] Last Admin: 05/07/17 16:29 Dose: 420 mls/hr Enalaprilat 2.5 mg/ Sodium (Chloride) 52 mls @ 100 mls/hr IV DAILY@1200 [facility] Last Admin: 05/07/17 13:00 Dose: 100 mls/hr Potassium Chloride/Dextrose/Sod Cl (Potassium Chl 20 Meq In D5-1/2ns) 1,000 mls @ 60 mls/hr IV .[id number] [facility] Last Admin: 05/07/17 14:17 Dose: 60 mls/hr Insulin Human Regular (Novolin R) 0 unit SC ACHS [facility] PRN Reason: Protocol Last Admin: 05/07/17 21:55 Dose: Not Given Lorazepam (Ativan) 2 mg IVP Q4H PRN PRN Reason: Seizure activity Lorazepam (Ativan) 1 mg IVP Q2H PRN PRN Reason: Seizure activity Metoprolol Tartrate (Lopressor) 5 mg IVP Q12 [facility] Last Admin: 05/07/17 21:31 Dose: 5 mg - Labs Labs: 05/07/17 11:06 05/07/17 11:06 PT 15.3 SECONDS (9.7-12.2) H 05/04/17 09:09 INR 1.3 05/04/17 09:09 APTT 33 SECONDS (21-34) 05/04/17 09:09
[2017-05-08] MEDS ORDERED: Metoprolol 1 mg/ml Inj IVP ONE (04:38)
[2017-05-08 04:39] LABS: BASO % 0.3 % (0.0-2.0); EOS % 0.3 % (0.0-4.0); LYMPH # 0.9 K/uL (1.0-4.3); LYMPH % 10.8 % (20.0-40.0); MEAN CELL VOLUME 91.5 fL (81.0-99.0); MEAN CORPUSCULAR HEMOGLOBIN 30.1 pg (27.0-31.0); MEAN CORPUSCULAR HGB CONC 32.9 g/dL (33.0-37.0); MONO # 0.8 K/uL (0.0-0.8); MONO % 9.8 % (0.0-10.0); RED CELL DISTRIBUTION WIDTH 15.8 % (11.5-14.5); WHITE BLOOD COUNT 8.4 K/uL (4.8-10.8)
[2017-05-08] MEDS: levETIRAcetam 1,000 MG in Sodium Chloride 0.9% 100 ML IVPB SCH ×2 (04:42→17:22)
[2017-05-08 05:45] LABS: POTASSIUM 2.9 mmol/L (3.6-5.2)
[2017-05-08 05:47] LABS: ALB/GLOB RATIO 0.8 (1.0-2.1); BILIRUBIN,TOTAL 0.7 mg/dL (0.2-1.3); TOTAL PROTEIN 6.5 g/dL (6.3-8.3)
[2017-05-08 05:48] LABS: CALCIUM 8.2 mg/dl (8.6-10.4); MAGNESIUM 1.6 mg/dL (1.6-2.3); PHOSPHOROUS 3.3 mg/dL (2.5-4.5)
[2017-05-08] MEDS ORDERED: Magnesium Sulfate 1 gm in D5W 1 GM/100 ML BAG IVPB ONE ×2 (05:59→08:30)
[2017-05-08] MEDS: (Novolin R) Insulin Human Regular 100 units/ml vial SC SCH ×4 (08:30→21:36)
--- NOTE | 2017-05-08 08:50 | CP.PCM.PN ---
Subjective - Date & Time of Evaluation Date of Evaluation: 05/06/17 Time of Evaluation: 16:00 - Subjective Subjective: DIAGNOSTIC SALES SPECIALIST NOTIFIED TODAY BY MINDY PRETTY THAT PT'S SBP 190S. PT IS VERY AGITATED AND NURSING STAFF ATTEMPTING TO TAKE BP WHILE PT IS AGITATED AND COMBATIVE. PT SEEN TO BY AND RN ADMITS TO NOT DISCUSSING PT'S MEDS WITH MD. UPON REVIEW OF MED REC IT IS NOTED THAT DR. DODD ALREADY ORDERED IV BP MEDS. 3 TOWER UNABLE TO PUSH IV ANTIHYPERTENSIVES; ORDER FOR TRANSFER TO [facility] GIVEN. MAG , CBC, CHEM TO BE REPEATED IN AM. NO FURTHER ORDERS. Objective - Vital Signs/Intake and Output Vital Signs (last 24 hours): Temp Pulse Resp BP Pulse Ox 98.5 F 82 20 129/88 98 05/08/17 08:28 05/08/17 08:31 05/08/17 08:28 05/08/17 08:31 05/08/17 08:28 Intake and Output: 05/08/17 05/08/17 06:59 18:59 Intake Total 1250 Output Total 310 Balance 940 - Medications Medications: Current Medications Dextrose (Dextrose 50% Inj) 50 ml IV PRN PRN PRN Reason: Hypoglycemia Heparin Sodium (Porcine) (Heparin) 5,000 units SC Q12 [facility] Last Admin: 05/07/17 21:33 Dose: 5,000 units Piperacillin Sod/Tazobactam Sod (Zosyn 3.375 Gm Iv Premix) 3.375 gm in 50 mls @ 100 mls/hr IVPB Q6H [facility] Last Admin: 05/08/17 03:24 Dose: 100 mls/hr Levetiracetam 1,000 mg/ Sodium (Chloride) 110 mls @ 420 mls/hr IVPB Q12H [facility] Last Admin: 05/08/17 04:42 Dose: 420 mls/hr Enalaprilat 2.5 mg/ Sodium (Chloride) 52 mls @ 100 mls/hr IV DAILY@1200 [facility] Last Admin: 05/07/17 13:00 Dose: 100 mls/hr Potassium Chloride/Dextrose/Sod Cl (Potassium Chl 20 Meq In D5-1/2ns) 1,000 mls @ 60 mls/hr IV .[id number] [facility] Last Admin: 05/07/17 14:17 Dose: 60 mls/hr Magnesium Sulfate/Dextrose (Magnesium Sulfate 1 Gm/100 Ml D5w) 1 gm in 100 mls @ 200 mls/hr IVPB ONCE ONE Stop: 05/08/17 08:59 Potassium Chloride (Potassium Chloride 20 Meq/100 Ml) 20 meq in 100 mls @ 50 mls/hr IVPB Q2 [facility] Stop: 05/08/17 13:59 Insulin Human Regular (Novolin R) 0 unit SC ACHS [facility] PRN Reason: Protocol Last Admin: 05/07/17 21:55 Dose: Not Given Lorazepam (Ativan) 2 mg IVP Q4H PRN PRN Reason: Seizure activity Lorazepam (Ativan) 1 mg IVP Q2H PRN PRN Reason: Seizure activity Metoprolol Tartrate (Lopressor) 5 mg IVP Q12 [facility] Last Admin: 05/07/17 21:31 Dose: 5 mg - Labs Labs: 05/08/17 04:34 05/08/17 04:34 PT 15.3 SECONDS (9.7-12.2) H 05/04/17 09:09 INR 1.3 05/04/17 09:09 APTT 33 SECONDS (21-34) 05/04/17 09:09
--- NOTE | 2017-05-08 08:52 | CON ---
DATE: 05/07/2017 ATTENDING PHYSICIAN: Alin Nicholson MD LOCATION: The patient is in room #656, bed B. REASON FOR CONSULTATION: Change in mental status. CHIEF COMPLAINT: The patient was brought in from [facility] with history of change in mental status. From neurological point of view, I was called in to evaluate her for further management. Earlier this morning, I was called in to be notified of her CAT scan findings, which was read as subacute stroke. Later I was called in as the patient did have seizure activities. The patient's dose was adjusted. HISTORY OF PRESENT ILLNESS: Alla Arvizu is an 86-year-old right-handed female [facility] resident being brought in to [facility] on 05/04/2017 with history of change in mental status. Her initial CAT scan was done in the emergency room, which was read as old right MCA stroke. The patient did have a followup CAT scan, which showed new left MCA stroke with seizure activities. Because of old stroke and chronic atrial fibrillation, TPA was not given. The patient was loaded with extra dose of Keppra and Ativan was given. The clinical seizure ceased on giving this medication. PAST MEDICAL HISTORY: Atrial fibrillation, stroke, [id number] diabetes mellitus, hypothyroidism, and seizures. PERSONAL HISTORY: Denies smoking or alcohol use. No documentation in the chart. CURRENT MEDICATIONS: Levetiracetam 1000 mg twice a day, IV fluids, and insulin. REVIEW OF SYSTEMS: A 12-point system being reviewed from neurological system shows a new change in mental status with seizures and new CAT scan findings suggestive of left MCA infarct. PHYSICAL EXAMINATION: VITAL SIGNS: Blood pressure 190/72 with mean arterial pressure of 111; respiratory rate is 18; pulse rate is 134, irregularly irregular, and temperature is 99.3. NECK: Supple. HEART: Sounds irregularly irregular with soft systolic murmur heard. EXTREMITIES: Distal muscle groups as well as proximal muscle groups atrophy noted. Some tremulous movement rhythmically seen on her right side to compare with left side. NEUROLOGIC EXAMINATION: The patient is fully unresponsive. Eyes are closed. On opening the eyelids, left lateral gaze nystagmus is noted. Pupils are sluggishly reactive to light. Corneal reflex is sluggish. Gag is not evaluated at this time. MOTOR: Flaccid. Left hemiplegic. Right side tone increased. DEEP TENDON REFLEXES: Hyperreflexia on her left side, right side was 1+. Plantars are upgoing on both sides. SENSORY: Does not respond to painful stimuli. COORDINATION AND GAIT: Deferred at this time. CONCLUSION: Upon reviewing her history and neurological examination, Ms. 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 At present, the patient is sedated with Ativan, probably with postictal phase. Per workup, CT of the head, right MCA encephalomalacia from her old stroke and left new lucency consistent with MCA infarct, which is probably of cardioembolic source. BLOOD WORKUP: WBC 10.2, hemoglobin 12.6, hematocrit 38.8, platelet 253. Sodium 151, potassium 2.9, chloride 112, bicarbonate 26, GFR more than 60, glucose 142. Prolactin 11.2. RECOMMENDATIONS: 1. Cardiology consult was called in because of her cardiac arrhythmias with rapid atrial fibrillation. The case was discussed with Dr. Reyes. 2. Head elevation. Keep the mean arterial pressure of around 100. IV hydration and potassium supplement. 3. Electrocardiogram. 4. MRI of the brain/carotid Doppler/echocardiogram requested. 5. The patient's family members have been tried to be contacted; however, no answers from the family end. Considering her status of DNR and DNI, we could not intubate her because of her status epilepticus. We will follow the lab work, we will follow the electroencephalogram, and follow the recommendation as recommended above. The patient will be followed while she is in the hospital. Manuel Jaimes MD
--- NOTE | 2017-05-08 09:31 | PN ---
DATE: 05/08/2017 TIME OF EVALUATION: 07:00 a.m. 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 PHYSICAL EXAMINATION: VITAL SIGNS: Blood pressure 160/67 with mean artery pressure of 98, pulse rate 94 with AFib on the monitor. The patient is not on sedation. The patient is comatose, not response to noxious stimuli. On forcefully opening the eyelid, the pupil reactive to light sluggishly. No rolling conjugate gaze noted with good corneal reflex on the left side, right side was slightly decreased. Flaccid right hemiplegia to compare with the left side. Plantars are upgoing on both sides, the left side hyperreflexic. The patient was seen by Dr. Reyes yesterday. His consideration was appreciated. He was placed on beta milan and potassium was supplemented. The patient was on NG tube and Martin catheter to relieve her pressure. No visible seizures. The patient is scheduled to have *------* program today and followup CT of the head today. We will follow the above results. Continue Keppra 1000 mg twice a day for now. Manuel Jaimes MD
[2017-05-08] MEDS: Metoprolol 1 mg/ml Inj IVP SCH (10:23)
--- NOTE | 2017-05-08 10:29 | RAD ---
HISTORY: NGT placement COMPARISON: 05/07/2017 FINDINGS: LUNGS: No active pulmonary disease. PLEURA: No significant pleural effusion identified, no pneumothorax apparent. CARDIOVASCULAR: Normal heart size. NG tube now present, extending to left upper quadrant of abdomen. OSSEOUS STRUCTURES: No significant abnormalities. VISUALIZED UPPER ABDOMEN: Normal. OTHER FINDINGS: None. IMPRESSION: New nasogastric tube extends to left upper quadrant. No infiltrate. No other interval change.
[2017-05-08] MEDS: Potassium Ch 20mEq in D5-1/2NS 1,000 ML IV SCH ×2 (10:31→22:35)
--- NOTE | 2017-05-08 14:07 | CP.PCM.CON ---
History of Present Illness - History of Present Illness History of Present Illness: Palliative consult Requested by Bharat RAPHAEL Reason: Goals of care discussion Patient is a 86 yo lady admitted from CT where she was found drooling , moaning and nonverbal. As per nursing patient was usualy ambulating with walker and was verbal. Upon admission to the ED the head CT confirmed acute left parietal infarct. Patient was diagnosed with status epilepticus and put on Kepra BID. patient was given NGT for the PO meds and nutrition. Patient was also tachycardic and cardilology consult was called. Beta blockers ordered and Tx initiated. Patient has two forms regarding end of life care on chart signed in 2010 by the patient and another one signed in 2015 by patient's friend Reanna gorman [phone]. I was called to clarify Code status. PMH: left hemiparesis, A fib, Bipolar, CHF, dementia, HTN Soc. Hx: , [place] resident, has one son in [place] [facility] Hx: No info available, patient can not offer information due to acuity of condition Review of Systems - Review of Systems Systems not reviewed;Unavailable: Acuity of Condition, Dementia, Altered Mental Status All systems: reviewed and no additional remarkable complaints except Review of Systems: ROS unobtainable from the patient, patient is non verbal and with AMS. As per nursing no acute events over night. Past Patient History - Infectious Disease Hx of Infectious Diseases: None - Past Medical History & Family History Past Medical History?: Yes - Past Social History Smoking Status: Never Smoked - CARDIAC Hx Cardiac Disorders: Yes Hx Angina: No Hx Atrial Fibrillation: Yes Hx Cardia Arrhythmia: Yes Hx Circulatory Problems: No Hx Congestive Heart Failure: Yes Hx Heart Attack: No Hx Heart Murmur: No Hx Heart Transplant: No Hx Hypercholesterolemia: Yes Hx Hypertension: Yes Hx Hypotension: No Hx Internal Defibrillator: No Hx Mitral Valve Prolapse: No Hx Pacemaker: No Hx Peripheral Edema: No Hx Peripheral Vascular Disease: No - PULMONARY Hx Respiratory Disorders: Yes Hx Asthma: No Hx Bronchitis: No Hx Chronic Obstructive Pulmonary Disease (COPD): No Hx Emphysema: No Hx Lung Cancer: No Hx Pneumonia: No Hx Pulmonary Edema: No Hx Pulmonary Embolism: No Hx Respiratory Aspiration: No Hx Respiratory Tract Infection: No Hx Sleep Apnea: No Hx Tuberculosis: No Other/Comment: chronic resp failure - NEUROLOGICAL Hx Neurological Disorder: Yes Hx Alzheimer's Disease: No HX Cerebrovascular Accident: Yes Hx Dementia: Yes Hx Dizziness: No Hx Meningitis: No Hx Migraine: No Hx Multiple Sclerosis: No Hx Paralysis: No Hx Parkinson's Disease: No Hx Seizures: Yes Hx Syncope: No Hx Transient Ischemic Attacks (TIA): No Hx Vertigo: No Other/Comment: DEMENTIA - HEENT Hx HEENT Problems: No - RENAL Hx Chronic Kidney Disease: No - ENDOCRINE/METABOLIC Hx Endocrine Disorders: Yes Hx Adrenal Cancer: No Hx Diabetes Insipidus: No Hx Diabetes Mellitus Type 1: No Hx Diabetes Mellitus Type 2: Yes Hx Hyperthyroidism: No Hx Hypothyroidism: No Hx Systemic Lupus Erythematosus: No - HEMATOLOGICAL/ONCOLOGICAL Hx Blood Disorders: No - INTEGUMENTARY Hx Dermatological Problems: No - MUSCULOSKELETAL/RHEUMATOLOGICAL Hx Falls: No - GASTROINTESTINAL Hx Gastrointestinal Disorders: Yes Hx Bowel Surgery: No Hx Clostridium Difficile: No Hx Colitis: No Hx Colostomy: No Hx Constipation: No Hx Crohn's Disease: No Hx Diarrhea: No Hx Diverticulitis: No Hx Esophageal Varices: No Hx Fatty Liver Disease: No Hx Gall Bladder Disease: No Hx Gastritis: No Hx Gastroesophageal Reflux: No Hx Hemorrhoids: Yes Hx Ileostomy: No Hx Irritable Bowel: No Hx Liver Failure: No Hx Nausea: No Hx Pancreatitis: No HX Swallowing Problems: Yes Hx Ulcer: No Hx Vomiting: No - GENITOURINARY/GYNECOLOGICAL Hx Genitourinary Disorders: Yes Hx Bladder Cancer: No Hx Bladder Stone: No Hx Cervical Cancer: No Hx Hematuria: No Hx Incontinence: Yes Hx Ovarian Cancer: No Hx Postmenopausal Bleeding: No Hx Reproductive Disorders: No Hx Sexually Transmitted Disorders: No Hx Uterine Cancer: No Hx Urinary Tract Infection: Yes - PSYCHIATRIC Hx Substance Use: No - SURGICAL HISTORY Hx Surgeries: Yes Hx Abdominal Aortic Aneurysm Repair: No Hx Amputation: No Hx Angiogram: No Hx Angioplasty: No Hx Appendectomy: No Hx Arteriovenous Shunt: No Hx Arthroscopy: No Hx Bile Duct Stent: No Hx Breast Biopsy: No Hx Cataract Extraction: No Hx Cardiac Catheterization: No Hx Carotid Endarterectomy: No Hx Section: No Hx Cholecystectomy: No Hx Coronary Artery Bypass Graft: No Hx Coronary Stent: Yes Hx Dilation and Curettage: No Hx Eye Surgery: No Hx Femoral-Popliteal Bypass Graft: No Hx Gastric Bypass Surgery: No Hx Herniorrhaphy: No Hx Hysterectomy: No Hx Joint Replacement: No Hx Kidney Transplant: No Hx Liver Transplant: No Hx Mastectomy: No Hx Musculoskeletal Surgery: No Hx Open Heart Surgery: No Hx Open Reduction Internal Fixation: No Hx Orthopedic Surgery: No Hx Parathyroidectomy: No Hx Penile Implant: No Hx Pulmonary Surgery: No Hx Splenectomy: No Hx Thyroidectomy: No Hx Tonsillectomy: No Hx Tubal Ligation: No Hx Valve Replacement: No Hx Vascular Surgery: No Hx Vascular Access Device: No - ANESTHESIA Hx Anesthesia: Yes Hx Anesthesia Reactions: No Hx Malignant Hyperthermia: No Has any member of the family had a problem w/ anesthesia?: No Meds Allergies/Adverse Reactions: Allergies Allergy/AdvReac Type Severity Reaction Status Date / Time No Known Allergies Allergy Unverified 11/06/13 17:27 - Medications Medications: Current Medications Dextrose (Dextrose 50% Inj) 50 ml IV PRN PRN PRN Reason: Hypoglycemia Heparin Sodium (Porcine) (Heparin) 5,000 units SC Q12 VELMA Last Admin: 05/08/17 10:35 Dose: 5,000 units Piperacillin Sod/Tazobactam Sod (Zosyn 3.375 Gm Iv Premix) 3.375 gm in 50 mls @ 100 mls/hr IVPB Q6H VELMA Last Admin: 05/08/17 09:00 Dose: 100 mls/hr Levetiracetam 1,000 mg/ Sodium (Chloride) 110 mls @ 420 mls/hr IVPB Q12H VELMA Last Admin: 05/08/17 04:42 Dose: 420 mls/hr Potassium Chloride/Dextrose/Sod Cl (Potassium Chl 20 Meq In D5-1/2ns) 1,000 mls @ 60 mls/hr IV .[id number] VELMA Last Admin: 05/08/17 10:31 Dose: 60 mls/hr Potassium Chloride (Potassium Chloride 20 Meq/100 Ml) 20 meq in 100 mls @ 50 mls/hr IVPB Q2 VELMA Stop: 05/08/17 13:59 Last Admin: 05/08/17 11:21 Dose: 50 mls/hr Diltiazem HCl 125 mg/ Dextrose 125 mls @ 5 mls/hr IV .Q24H VELMA; 5 MG/HR PRN Reason: Protocol Last Admin: 05/08/17 12:13 Dose: Not Given Insulin Human Regular (Novolin R) 0 unit SC ACHS VELMA PRN Reason: Protocol Last Admin: 05/08/17 12:34 Dose: Not Given Lorazepam (Ativan) 2 mg IVP Q4H PRN PRN Reason: Seizure activity Lorazepam (Ativan) 1 mg IVP Q2H PRN PRN Reason: Seizure activity Metoprolol Tartrate (Lopressor) 25 mg NG BID VELMA Rosuvastatin Calcium (Crestor) 10 mg NG HS VELMA Physical Exam - Constitutional Appears: Chronically Ill - Head Exam Head Exam: ATRAUMATIC, NORMAL INSPECTION, NORMOCEPHALIC - Eye Exam Eye Exam: EOMI, Normal appearance, PERRL Pupil Exam: NORMAL ACCOMODATION, PERRL - ENT Exam Additional comments: NGT - Neck Exam Neck exam: Positive for: Normal Inspection - Respiratory Exam Respiratory Exam: Decreased Breath Sounds - Cardiovascular Exam Cardiovascular Exam: Tachycardia - GI/Abdominal Exam GI & Abdominal Exam: Hypoactive Bowel Sounds, Soft - Rectal Exam Rectal Exam: Deferred - Extremities Exam Additional comments: Left sided weakness - Back Exam Back exam: NORMAL INSPECTION - Neurological Exam Neurological exam: Alert, Altered, Motor Sensory Deficit - Psychiatric Exam Psychiatric exam: Flat Affect - Skin Skin Exam: Normal Color Results - Vital Signs Recent Vital Signs: Last Vital Signs Temp 98.5 F 05/08/17 08:28 Pulse 77 05/08/17 12:04 Resp 20 05/08/17 08:28 BP 138/69 05/08/17 12:04 Pulse Ox 98 05/08/17 08:28 - Labs Result Diagrams: 05/08/17 04:34 05/08/17 04:34 Labs: Laboratory Results - last 24 hr 05/07/17 05/07/17 05/07/17 11:06 16:08 21:04 WBC RBC Hgb Hct MCV MCH MCHC RDW Plt Count MPV Neut % (Auto) Lymph % (Auto) Alcorn % (Auto) Eos % (Auto) Baso % (Auto) Neut # Lymph # Alcorn # Eos # Baso # Sodium Potassium Chloride Carbon Dioxide Anion Gap BUN Creatinine Est GFR ( Amer) Est GFR (Non-Af Amer) POC Glucose (mg/dL) 130 H 129 H Random Glucose Calcium Phosphorus Magnesium Total Bilirubin AST ALT Alkaline Phosphatase Total Creatine Kinase CK-MB (Mass) Troponin I, Quant Total Protein Albumin Globulin Albumin/Globulin Ratio LDL Cholesterol Direct 75 05/08/17 05/08/17 05/08/17 04:34 04:34 06:08 WBC 8.4 RBC 4.15 Hgb 12.5 Hct 38.0 MCV 91.5 MCH 30.1 MCHC 32.9 L RDW 15.8 H Plt Count 219 MPV 8.0 Neut % (Auto) 78.8 H Lymph % (Auto) 10.8 L Alcorn % (Auto) 9.8 Eos % (Auto) 0.3 Baso % (Auto) 0.3 Neut # 6.7 Lymph # 0.9 L Alcorn # 0.8 Eos # 0.0 Baso # 0.0 Sodium 152 H Potassium 2.9 L Chloride 114 H Carbon Dioxide 28 Anion Gap 13 BUN 17 Creatinine 1.2 Est GFR ( Amer) 51 Est GFR (Non-Af Amer) 42 POC Glucose (mg/dL) 115 H Random Glucose 129 H Calcium 8.2 L Phosphorus 3.3 Magnesium 1.6 Total Bilirubin 0.7 AST 26 ALT 24 Alkaline Phosphatase 69 Total Creatine Kinase 141 H CK-MB (Mass) 1.29 Troponin I, Quant 0.5760 H* Total Protein 6.5 Albumin 2.9 L Globulin 3.6 Albumin/Globulin Ratio 0.8 L LDL Cholesterol Direct 05/08/17 11:34 WBC RBC Hgb Hct MCV MCH MCHC RDW Plt Count MPV Neut % (Auto) Lymph % (Auto) Alcorn % (Auto) Eos % (Auto) Baso % (Auto) Neut # Lymph # Alcorn # Eos # Baso # Sodium Potassium Chloride Carbon Dioxide Anion Gap BUN Creatinine Est GFR ( Amer) Est GFR (Non-Af Amer) POC Glucose (mg/dL) 155 H Random Glucose Calcium Phosphorus Magnesium Total Bilirubin AST ALT Alkaline Phosphatase Total Creatine Kinase CK-MB (Mass) Troponin I, Quant Total Protein Albumin Globulin Albumin/Globulin Ratio LDL Cholesterol Direct Assessment & Plan - Assessment and Plan (Free Text) Assessment: Palliative consult Code status DNR/DNI, copy of living will on chart, PPS 10% I reviewed medical records, all diagnostic studies, examined patient in the bed and discussed her condition with Doctor Nicholson over the phone. patient is alert, non verbal, unable to fallow commends and with left sided weakness. Breath sounds are diminished, NGT in place for feeding, HR 125, cardizem and vasotec on board. O2Sat 98 %, patient is afebrile. As per Neurology suggestion patient is on Kepra BID. All other systems were reviewed and were negative. The copy of living will on chart, written in [place]ian and signed by the patient on 11/11/10 indicating that patient would not want her life to be prolonged by the use of agressive interventions including CPR, MV support, blood transfusion. HD, radiation/ chemo Tx, antibiotics, artificial nutrition, artificial hydration, blood works and x rays studies. The copy of POLST signed at later date 03/20/2016 by Reanna Natalie [phone] is different from the original living will. The POLST indicates " Symptoms treatment Only" and allows use of antibiotics if is aimed to patient comfort. The POLST is not specific the way the Living will is, and is also not known what was patient's decision making capacity at the time when the POLST was signed and weather or not patient has changed her mind. I reached out to Reanna Gorman and left voice mail asking for the meeting. Impression * This is a chronically ill patient with complex medical Hx * Patient is non verbal at present and unable to participate in goals of care discussion * Patient's surrogate decision maker Reanna Gorman was not available over the phone * The latest POLST signed by Natalie Forte is different than original Living Will and the reason for it is not clear Suggestion * Would continue current treatments until Mrs. Reanna Gorman located and family meeting arranged * Agree with DNR/DNI as is is the same on both forms * Further goals of care to be discussed with Mrs. Forte and care measures readjusted This was discussed with Doctor Nba and concurred Thank you for consulting Palliative care
--- NOTE | 2017-05-08 14:22 | CT ---
PROCEDURE: CT scan brain dated 05/08/2017 HISTORY: [facility] for tomorrow 05/08/2017 am COMPARISON: Comparison made with CT scan brain 05/06/2017 TECHNIQUE: Contiguous helical/ transaxial computed tomography images were obtained through the head/brain without intravenous contrast. Radiation dose: Total exam DLP = 981.84 mGy-cm. This CT exam was performed using one or more of the following dose reduction techniques: Automated exposure control, adjustment of the mA and/or kV according to patient size, and/or use of iterative reconstruction technique. FINDINGS: HEMORRHAGE: No acute parenchymal, subarachnoid or extra-axial hemorrhage. BRAIN: Large left MCA territory infarct seen to much better advantage on the current exam as compared to prior study due to diminished motion study. This infarct involves the left frontoparietal lobes, left lateral basal ganglia and possibly a portion of the superior left temporal lobe. The infarct exerts surrounding mass effect with overlying sulcal effacement and mild compression of the left lateral ventricle. No significant [id number] midline shift noted at this time. 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 . There is persistent ex vacuo dilatation of the right lateral ventricle due to the aforementioned infarct. Mild vascular calcifications again seen. VENTRICLES: As above. No evidence of obstructive hydrocephalus CALVARIUM: No acute calvarial fractures. Noted. PARANASAL SINUSES: Mild polypoid like mucosal thickening left maxillary antrum unchanged MASTOID AIR CELLS: Unremarkable as visualized. No inflammatory changes. OTHER FINDINGS: Changes of bilateral cataract surgery again noted as well. . IMPRESSION: Large acute left MCA territory infarct seen to much better advantage on this study due to diminished motion on this exam. . The infarct does exert mild mass effect as above however no significant [id number] midline shift. . No acute intracranial hemorrhage. No change large old right MCA territory infarct with ex vacuo dilatation of the right lateral ventricle.
[2017-05-08] MEDS ORDERED: LANOLIN TP SCH (15:30)
[2017-05-08] MEDS ORDERED: Home Med 1 UNIT (Solifenacin Succinate [Vesicare] 5 MG) PO SCH (15:30)
[2017-05-08] MEDS ORDERED: PETROLATUM WHITE TP SCH (15:30)
[2017-05-08 16:04] VITALS: O2SAT 96
--- NOTE | 2017-05-08 16:48 | PN ---
DATE: SUBJECTIVE: The patient is responsive. She developed a run of aberrantly conducted beats that was initially confused for ventricular tachycardia but it is not. The patient is on rapid atrial fibrillation and required initiation of intravenous Cardizem which will be started soon. There is no family member or next of kin available so far. NG tube was placed. Aspirin was not approved by the neurologist yesterday. PHYSICAL EXAMINATION VITAL SIGNS: Blood pressure 138/69, heart rate 77, temperature 98.5, respirations 20. HEENT: No pallor or icterus. CHEST: Diminished breath sounds bilaterally. HEART: S1 and S2 regular. EXTREMITIES: Dressings applied to both ankle sores. LABORATORY DATA: White count, hemoglobin, hematocrit and platelet count are within normal limits. SMA-7; sodium 152, potassium 2.9, chloride 114, CO2 is 28, glucose 129, BUN 17, creatinine 1.2. Troponin 0.576. A portal chest x-ray revealed small right lower lobe infiltrate. ASSESSMENT: 1. Acute cerebrovascular accident. 2. Seizure disorder. 3. Chronic atrial fibrillation. 5. Hypernatremia and hypokalemia. CONDITIONS: Case was discussed with the CARDING SUPERVISOR team. The patient can be started on IV Cardizem. I discontinued intravenous Vasotec and started Lopressor 25 mg twice a day via nasogastric tube and Crestor 20 mg once a day via nasogastric tube. Continue subcutaneous heparin. Overall prognosis is very poor. Currently, the patient or her power of ip technology transactions attorney has signed do not resuscitate and do not hospitalize order but nobody is available today to discuss further plans for the patient. Quirino Reyes MD
[2017-05-08] MEDS: Vitamins A & D Oint UD Foilpak TOP SCH (17:21)
--- NOTE | 2017-05-08 18:35 | PN ---
SUBJECTIVE: The patient is seen today 05/08/2017. The patient is not responding to any verbal stimuli. She was given Ativan last time yesterday for status epilepticus. PHYSICAL EXAMINATION: VITAL SIGNS: The patient is tachycardic with heart rate in the range of 140 to 150, blood pressure 166/80, temperature 97.1, respiratory rate 18. NECK: Supple. No JVD. No carotid bruit. No lymph node. No thyromegaly. CHEST AND LUNGS: Bilateral symmetrical expansion. Good air exchange. No rales. No rhonchi. CARDIOVASCULAR SYSTEM: PMI not localized. S1, S2, irregularly irregular. ABDOMEN: Normoactive bowel sounds. No tenderness. No organomegaly. No masses. EXTREMITIES: No cyanosis. No clubbing. No edema. RESIDENT ENGINEER: The patient is not arousable and not responding to verbal stimuli. She was given Ativan last time about 24 hours prior to the time of this examination. ASSESSMENT: 1. Acute cerebrovascular accident , status epilepticus. 2. Type 2 diabetes mellitus. 3. Hypertension. PLAN: Continue current management. We will discuss with palliative care nurse for possible palliative care given the patient's multiple comorbidities and very poor function at this point. Alin Nicholson MD MTDL[facility]
--- NOTE | 2017-05-08 19:43 | PN ---
SUBJECTIVE: The patient is seen. The patient was alert but mostly nonverbal. The patient is going for a repeat CAT scan today as the patient was diagnosed with new-onset left MCA stroke. The patient is followed by Dr. Jaimes. The patient still has bouts of agitation. PHYSICAL EXAMINATION: VITAL SIGNS: Temperature is 98.5, pulse rate is 77, blood pressure is 138/69, respirations 20, oxygen saturation 98%. MEDICATIONS: List of current medications, the patient is on Ativan p.r.n. and also the patient is on Keppra. REVIEW OF SYSTEMS: The patient is alert but has confusion, mostly nonverbal. The patient is not in acute respiratory distress, has been staying in her room, patient was waiting to go to CAT scan and has been compliant with meds. Review of systems cannot be fully assessed due to patient's delirium, vascular dementia. MENTAL STATUS EXAMINATION: Elderly female, who looks her stated age. Mood is dysphoric, still confused. Affect is restricted. The patient's speech, mumbles at times. Thought process confused. Thought content, no overt psychosis, no suicidal ideation. Attention and memory still impaired. Insight and judgment impaired. Impulse control is guarded at this time. IMPRESSION: Delirium, metabolic encephalopathy superimposed on dementia vascular-type. PLAN AND RECOMMENDATIONS: The patient is seen and medications reviewed. Continue present management. The patient is on no psych medicines except for the Ativan p.r.n. The patient is on Keppra and Ativan. The patient has been followed by Dr. Jaimes for the new left MCA stroke. The patient has history of old right MCA stroke in the past with residual left-sided weakness. Ted Lee MD
[2017-05-09] MEDS: Piperacill/Tazo 3.375gm in Dex 3.375 GM/50 ML BAG IVPB SCH ×2 (02:03→08:49)
[2017-05-09] MEDS: levETIRAcetam 1,000 MG in Sodium Chloride 0.9% 100 ML IVPB SCH ×2 (03:22→17:21)
[2017-05-09] MEDS: (Novolin R) Insulin Human Regular 100 units/ml vial SC SCH ×2 (08:10→12:30)
[2017-05-09] MEDS: Vitamins A & D Oint UD Foilpak TOP SCH (10:55)
[2017-05-09] MEDS: Potassium Ch 20mEq in D5-1/2NS 1,000 ML IV SCH (11:58)
--- NOTE | 2017-05-09 14:21 | CP.PCM.PN ---
Subjective - Date & Time of Evaluation Date of Evaluation: 05/09/17 Time of Evaluation: 14:15 - Subjective Subjective: Family meeting held for goals of care discussion Objective - Vital Signs/Intake and Output Vital Signs (last 24 hours): Temp Pulse Resp BP Pulse Ox 98.2 F 96 H 20 179/69 H 96 05/09/17 08:13 05/09/17 08:13 05/09/17 08:13 05/09/17 11:00 05/09/17 08:13 Intake and Output: 05/09/17 05/09/17 06:59 18:59 Intake Total 1100 Output Total 700 Balance 400 - Medications Medications: Current Medications Acetaminophen (Tylenol 325mg Tab) 650 mg NG Q4 PRN PRN Reason: FOR MILD PAIN 1-3 Dextrose (Dextrose 50% Inj) 50 ml IV PRN PRN PRN Reason: Hypoglycemia Heparin Sodium (Porcine) (Heparin) 5,000 units SC Q12 [facility] Last Admin: 05/09/17 11:00 Dose: 5,000 units Piperacillin Sod/Tazobactam Sod (Zosyn 3.375 Gm Iv Premix) 3.375 gm in 50 mls @ 100 mls/hr IVPB Q6H [facility] Last Admin: 05/09/17 08:49 Dose: 100 mls/hr Levetiracetam 1,000 mg/ Sodium (Chloride) 110 mls @ 420 mls/hr IVPB Q12H [facility] Last Admin: 05/09/17 03:22 Dose: 420 mls/hr Potassium Chloride/Dextrose/Sod Cl (Potassium Chl 20 Meq In D5-1/2ns) 1,000 mls @ 60 mls/hr IV .[id number] [facility] Last Admin: 05/09/17 11:58 Dose: 60 mls/hr Diltiazem HCl 125 mg/ Dextrose 125 mls @ 5 mls/hr IV .Q24H [facility]; 5 MG/HR PRN Reason: Protocol Last Admin: 05/09/17 11:15 Dose: 5 mls/hr Insulin Human Regular (Novolin R) 0 unit SC ACHS [facility] PRN Reason: Protocol Last Admin: 05/09/17 12:30 Dose: 1 unit Lorazepam (Ativan) 2 mg IVP Q4H PRN PRN Reason: Seizure activity Lorazepam (Ativan) 1 mg IVP Q2H PRN PRN Reason: Seizure activity Metoprolol Tartrate (Lopressor) 25 mg NG BID [facility] Last Admin: 05/09/17 11:00 Dose: 25 mg Rosuvastatin Calcium (Crestor) 10 mg NG HS [facility] Last Admin: 05/08/17 21:35 Dose: 10 mg Tolterodine Tartrate (Detrol) 2 mg PO BID [facility] Last Admin: 05/09/17 11:36 Dose: 2 mg Vitamin A (Vitamin A & D Oint Ud Foilpak) 0 ea TOP DAILY [facility] Last Admin: 05/09/17 10:55 Dose: 1 ea - Labs Labs: 05/08/17 04:34 05/08/17 04:34 PT 15.3 SECONDS (9.7-12.2) H 05/04/17 09:09 INR 1.3 05/04/17 09:09 APTT 33 SECONDS (21-34) 05/04/17 09:09 - Constitutional Appears: No Acute Distress, Chronically Ill - Head Exam Head Exam: ATRAUMATIC, NORMAL INSPECTION, NORMOCEPHALIC - Eye Exam Eye Exam: Normal appearance Pupil Exam: NORMAL ACCOMODATION - ENT Exam ENT Exam: Mucous Membranes Dry Additional comments: NGT in place - Neck Exam Neck Exam: Normal Inspection - Respiratory Exam Respiratory Exam: Decreased Breath Sounds - Cardiovascular Exam Cardiovascular Exam: Tachycardia - GI/Abdominal Exam GI & Abdominal Exam: Hypoactive Bowel Sounds - Rectal Exam Rectal Exam: Deferred - Extremities Exam Extremities Exam: Pedal Edema - Back Exam Back Exam: NORMAL INSPECTION - Neurological Exam Neurological Exam: Altered, Motor Sensory Deficit Neuro motor strength exam: Left Upper Extremity: 2/1, Right Upper Extremity: 2/1 , Left Lower Extremity: 2/1, Right Lower Extremity: 2/1 - Psychiatric Exam Psychiatric exam: Flat Affect - Skin Skin Exam: Pallor Assessment and Plan - Assessment and Plan (Free Text) Assessment: Family meeting attended by patient's friend Mrs. Reanna Estrada, who was mentioned as a 2nd decision making surrogate, in patient's living will in 2010. I reviewed patient's clinical condition and [place] my concerns about patient's condition not improvingdespite all reasonable measures being applied to support her recovery. Mrs. Forte stated that patient was always very proud woman and enjoyed her life. Ever since patient's past away, patient begun declining . Reanna is sad seeing patient in this condition, and stated that if patient could talk, she would want to be allowed peaceful instead of being in this condition. Reanna also said she cried over the patient, went to [place] this morning and called patient's son in [place]. As per Reanna, patient's son and daughter usually come once a year to visit their mother. This year they will not be able to come before May. I reviewed with Reanna Living will signed by the patient in 2010 where Reanna was mentioned as a 2nd surrogate decision maker. As patient's past away almita now remains the only person to advocate for patient as per patient's wishes. Reanna said she would not change anything on the living will. her concern as of now is patient's comfort and peaceful . I suggested to Reanna that we applied non invasive measures to support patient's recovery but patient's condition did not improve. We feel obligated to respect patient's wishes stated in the Living will and that cessation of current Tx will most likely result in . Reanna stated understanding and agreed. This was discussed to Doctor Bharat who concurred. Doctor asked me to place order for Hospice eval. Plan as to return patient to NH under the comfort care only. Impression * Patient remains unresponsive to stimuli * patient's friend and decision surrogate maker suggesting that patient would not want this kind of life if she could talk * Living will on chart signed by the patient support comfort measures only Suggestion * Would transfer back to NH on comfort measures only and allow patient natural as those were her wishes.
[2017-05-09 16:09] VITALS: BP 131/73; RESP 18; TEMP 98.1
[2017-05-09] MEDS ORDERED: Piperacill/Tazo 2.25gm in Dex 2.25 GM/50 ML BAG IVPB SCH (17:00)
--- NOTE | 2017-05-09 18:31 | CARD ---
APPROVED REPORT EKG Measurement Heart [id number] <Conclusion> Atrial fibrillation with rapid ventricular response with premature ventricular or aberrantly conducted complexes Septal infarct, age undetermined Inferior infarct, age undetermined Abnormal ECG
--- NOTE | 2017-05-09 21:19 | PN ---
DATE: 05/09/2017 SUBJECTIVE: The patient is comatose. IV Cardizem was discontinued in anticipation of transferring the patient to hospice. PHYSICAL EXAMINATION: VITAL SIGNS: Blood pressure 131/73, heart rate 101, temperature 98.1. HEENT: No pallor or icterus. CHEST: Diminished breath sounds bilaterally. HEART: S1 and S2, regular. EXTREMITIES: The patient has +2 bilateral ankle ulcers. LABORATORY DATA: Today's sugars are 133, 173, and 164. The third head CT scan performed yesterday accounts for a large acute left mid cerebral artery territory infarct. The infarct does exert mild mass effect; however, no significant midline shift. No acute hemorrhage. ASSESSMENT: 1. 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 2. Atrial fibrillation. RECOMMENDATIONS: Continue current medical approach. The nasogastric tube will be maintained while on hospice, then oral Cardizem, Lopressor, Crestor can be administered; otherwise, no pills without nasogastric tube around. Prognosis is very grave. Quirino Reyes MD
[2017-05-09 23:04] VITALS: PULSE 122
--- NOTE | 2017-05-11 07:31 | DS ---
REASON FOR ADMISSION: An 86-year-old female who is a long-term resident at [facility]. COURSE OF HOSPITALIZATION: The patient was admitted to telemetry floor and she had no change in her mental status. The patient was receiving given. The patient also had an MRI that showed acute/subacute left parietotemporal infarction. The patient had an advanced directive form signed by her in 2010 for DNR, DNI, and DNT . The patient had hospice evaluation while she was in the hospital, and she was discharged to hospice care after her electrolytes and blood are unremarkable. FINAL DIAGNOSES: 1. Cerebrovascular accident. 2. Type 2 diabetes mellitus. 3. Hypertension. 4. Paroxysmal atrial fibrillation with rapid ventricular rate. Alin Nicholson MD
--- NOTE | 2017-05-12 22:32 | EEG ---
DATE: This is a 16-channel encephalogram of awake and drowsy adult. During the study, photic stimulation was performed, hyperventilation was not performed. The resting electroencephalogram consist of electroencephalogram consists of high amplitude 2 to 3 Hz with delta activity seen diffusely in bilateral cortical leads. These slow activities continuously noted from the beginning, some movement artifact contaminated with the background rhythm. There is evidence of polyspike and wave activities followed with slow activities consistent with epileptiform focus. The frontal muscle artifact contaminant with background rhythm. The photic stimulation did not evoke driving response noted at 2-20 Hz. IMPRESSION: This is an abnormal electroencephalogram because of persistent slowing throughout the record suggestive of bilateral cerebral dysfunction. This is superimposed with polyspike and wave activities consistent with epileptiform activities. Please correlate the findings with the neurological and radiological studies. Manuel Jaimes MD
--- NOTE | 2017-05-16 20:02 | CARD ---
APPROVED REPORT EKG Measurement Heart [id number] <Conclusion> Atrial fibrillation Left axis deviation Inferior infarct, age undetermined Abnormal ECG
--- NOTE | 2017-05-18 12:55 | CARD ---
APPROVED REPORT EKG Measurement Heart [id number] <Conclusion> Atrial fibrillation with rapid ventricular response with premature ventricular or aberrantly conducted complexes Left axis deviation baseline artifacts. Abnormal ECG
== END 2017-05-09 18:23 | disposition hospice, inpatient (51) | DRG 871 ==
LOC: C.ER 08:08 → C.9E 10:30 → C.3T 18:47 → C.5T 05-06 18:55 → C.6T 05-07 03:15
PROVIDERS: ADMIT Internal Medicine; ATTEND Internal Medicine
DX: A41.9 Sepsis, unspecified organism (principal); G93.41 Metabolic encephalopathy; I63.49 Cerebral infarction due to embolism of other cerebral artery; J96.10 Chronic respiratory failure, unspecified whether with hypoxia or hypercapnia; E87.0 Hyperosmolality and hypernatremia; I48.0 Paroxysmal atrial fibrillation; F01.51 Vascular dementia, unspecified severity, with behavioral disturbance; G40.101 Localization-related (focal) (partial) symptomatic epilepsy and epileptic syndromes with simple partial seizures, not intractable, with status epilepticus; E11.649 Type 2 diabetes mellitus with hypoglycemia without coma; E11.65 Type 2 diabetes mellitus with hyperglycemia; E87.1 Hypo-osmolality and hyponatremia; N39.0 Urinary tract infection, site not specified; G81.94 Hemiplegia, unspecified affecting left nondominant side; G40.901 Epilepsy, unspecified, not intractable, with status epilepticus; I50.9 Heart failure, unspecified; I11.0 Hypertensive heart disease with heart failure; R65.20 Severe sepsis without septic shock; E87.6 Hypokalemia; Z66 Do not resuscitate; E03.9 Hypothyroidism, unspecified; G93.89 Other specified disorders of brain; F31.9 Bipolar disorder, unspecified; Z79.4 Long term (current) use of insulin; E78.00 Pure hypercholesterolemia, unspecified